=== PATIENT | male | born 1985 | race American Indian/Alaskan Native ===

== ENCOUNTER 2022-02-25 02:10 | Emergency (ER) | payer MEDICARE ==
[2022-02-25 03:41] VITALS: BP 157/89
[2022-02-25] MEDS ORDERED: IPRATROPIUM/ALBUTEROL SULFATE 3 ML AMPUL.NEB IH ONE (10:51)
--- NOTE | 2022-02-25 11:46 | XRay Report ---
CHEST 2 VIEWS INDICATION: dyspnea. COMPARISON: None. FINDINGS: Support devices: None. Heart: Moderate cardiomegaly. Lungs/Pleura: No acute air space or interstitial disease. No significant pleural effusion. IMPRESSION: No acute findings. Signer Name: Sherwin Hensley MD Signed: 02/25/2022 11:41 AM Workstation Name: [id number]
[2022-02-25] MEDS ORDERED: IPRATROPIUM 0.02% NEBU 2.5 ML IH ONE (11:48)
--- NOTE | 2022-02-25 12:54 | Emergency Department Report ---
ED Shortness of Breath HPI - General Chief Complaint: Dyspnea/Respdistress Stated Complaint: GIDEON Source: patient Mode of arrival: Ambulatory Limitations: No Limitations - History of Present Illness Initial Comments: Patient is a 36-year-old male with a history of asthma and chronic bronchitis who presents to the ED with complaint of acute onset persistent nasal and sinus congestion, persistent dry cough and wheezing and shortness of breath for the last 4 days, worse in the last 12 hours. Patient states that he does not have any bronchodilators since he usually does not get asthma attacks frequently. Patient denies fever, chills, nausea and vomiting, chest pain and sore throat, abdominal pain, neck pain, headache, lightheadedness, dizziness or syncope. MD Complaint: shortness of breath, cough, "asthma attack" -: Sudden, days(s) (4) Severity: moderate Pain Scale: 6 Quality: dull Consistency: intermittent Improves With: nothing Worsens With: nothing Known History Of: asthma Context: recent URI, allergen exposure Associated Symptoms: denies other symptoms, cough Treatments Prior to Arrival: none - Related Data Home Oxygen Therapy: No Previous Rx's Medication Instructions Recorded Last Taken Type Albuterol Sulfate [Proventil Hfa] 1 - 2 puff IH Q4H PRN #1 inh 02/25/22 Unknown Rx Benzonatate [Tessalon Perles] 100 mg PO Q8HR #30 cap 02/25/22 Unknown Rx Cetirizine HCl [Zyrtec 10mg tab] 10 mg PO DAILY #30 tab 02/25/22 Unknown Rx methylPREDNISolone [Medrol 4MG 4 mg PO DAILY #21 tab 02/25/22 Unknown Rx DOSEPAK (21 tabs)] Allergies Allergy/AdvReac Type Severity Reaction Status Date / Time No Known Allergies Allergy Verified 02/25/22 12:04 ED Review of Systems ROS: Stated complaint: GIDEON Other details as noted in HPI Constitutional: denies: chills, fever, malaise, weakness Eyes: denies: eye pain, eye discharge, vision change ENT: congestion. denies: ear pain, throat pain Respiratory: cough, shortness of breath, wheezing Cardiovascular: denies: chest pain, palpitations Endocrine: no symptoms reported Gastrointestinal: denies: abdominal pain, nausea, diarrhea Genitourinary: denies: urgency, dysuria Musculoskeletal: denies: back pain, joint swelling, arthralgia Skin: denies: rash, lesions Neurological: denies: headache, weakness, paresthesias Psychiatric: denies: anxiety, depression Hematological/Lymphatic: denies: easy bleeding, easy bruising ED Past Medical Hx - Past Medical History Previous Medical History?: Yes Hx Asthma: Yes Additional medical history: Chronic bronchitis - Medications Home Medications: Home Medications Medication Instructions Recorded Confirmed Last Taken Type Albuterol Sulfate [Proventil Hfa] 1 - 2 puff IH Q4H PRN #1 inh 02/25/22 Unknown Rx Benzonatate [Tessalon Perles] 100 mg PO Q8HR #30 cap 02/25/22 Unknown Rx Cetirizine HCl [Zyrtec 10mg tab] 10 mg PO DAILY #30 tab 02/25/22 Unknown Rx methylPREDNISolone [Medrol 4MG 4 mg PO DAILY #21 tab 02/25/22 Unknown Rx DOSEPAK (21 tabs)] ED Physical Exam - General Limitations: No Limitations General appearance: alert, in no apparent distress - Head Head exam: Present: atraumatic, normocephalic, normal inspection - Eye Eye exam: Present: normal appearance, PERRL, EOMI Pupils: Present: normal accommodation - ENT ENT exam: Present: normal exam, normal orophraynx, mucous membranes moist, TM's normal bilaterally, normal external ear exam - Neck Neck exam: Present: normal inspection, full ROM. Absent: tenderness - Respiratory Respiratory exam: Present: wheezes (mildly diffuse coarse wheezes). Absent: normal lung sounds bilaterally, respiratory distress, rales, rhonchi, chest wall tenderness, accessory muscle use - Cardiovascular Cardiovascular Exam: Present: regular rate, normal rhythm, normal heart sounds. Absent: systolic murmur, diastolic murmur, rubs, gallop - GI/Abdominal GI/Abdominal exam: Present: soft, normal bowel sounds. Absent: tenderness, guarding, rebound, hyperactive bowel sounds, hypoactive bowel sounds - Extremities Exam Extremities exam: Present: normal inspection, full ROM, normal capillary refill. Absent: tenderness - Back Exam Back exam: Present: normal inspection, full ROM. Absent: tenderness, CVA tenderness (R), CVA tenderness (L), muscle spasm, paraspinal tenderness, vertebral tenderness, rash noted - Neurological Exam Neurological exam: Present: alert, oriented X3, CN II-XII intact, normal gait, reflexes normal - Psychiatric Psychiatric exam: Present: normal affect, normal mood - Skin Skin exam: Present: warm, dry, intact, normal color. Absent: rash ED Course Vital Signs 02/25/22 02/25/22 03:38 11:50 Temperature 98.6 F Pulse Rate 87 Pulse Rate [ 86 Bilateral Throughout] Respiratory 16 Rate Respiratory 18 Rate [Bilateral Throughout] Blood Pressure 157/89 [Right] O2 Sat by Pulse 97 Oximetry ED Medical Decision Making - Radiology Data Radiology results: report reviewed, image reviewed [facility] [address] [place] [address] XRay Report Signed Patient: LADARIUS CH MR#: [id number] 75 : 1985 Acct:[id number] Age/Sex: 36 / M ADM Date: 02/25/22 Loc: ED Attending Dr: Ordering Physician: ROSY AMEZCUA Date of Service: 02/25/22 Procedure(s): XR chest routine 2V Accession Number(s): [id number] cc: ROSY AMEZCUA Fluoro Time In Minutes: CHEST 2 VIEWS INDICATION: dyspnea. COMPARISON: None. FINDINGS: Support devices: None. Heart: Moderate cardiomegaly. Lungs/Pleura: No acute air space or interstitial disease. No significant pleural effusion. IMPRESSION: No acute findings. Signer Name: Sherwin Hensley MD Signed: 02/25/2022 11:41 AM Workstation Name: [id number] Transcribed By: ES Dictated By: Sherwin Hensley MD Electronically Authenticated By: Sherwin Hensley MD Signed Date/Time: 02/25/22 1141 DD/ 1140 TD/TT: - Medical Decision Making This is a 36-year-old male with a history of asthma and chronic bronchitis who presents to the ED with complaint of acute onset persistent nasal and sinus congestion, persistent dry cough and wheezing and shortness of breath for the last 4 days, worse in the last 12 hours. Patient states that he does not have any bronchodilators since he usually does not get asthma attacks frequently. In the ED, patient is alert and oriented x3 and is not in any distress. Patient received 2 rounds of DuoNeb treatment in the ED as well as Solu-Medrol 125 mg intramuscular injection. Chest x-ray showed no acute cardiopulmonary abnormalities or pneumonitis. On reevaluation, patient wheezing resolved, patient felt better, patient's oxygen saturation ranged from 98 to 100% on room air. Patient was discharged home on medications and advised to follow-up with his primary care physician in 3 to 5 days for reevaluation or return to the ED immediately if symptoms get worse - Differential Diagnosis Asthma; bronchitis; URI; rhinitis Critical care attestation.: If time is entered above; I have spent that time in minutes in the direct care of this critically ill patient, excluding procedure time. ED Disposition Clinical Impression: Shortness of breath Asthmatic bronchitis with acute exacerbation Qualifiers: Asthma severity: unspecified severity Asthma persistence: unspecified Qualified Code(s): J45.901 - Unspecified asthma with (acute) exacerbation Disposition: HOME / SELF CARE / HOMELESS Is pt being admited?: No Does the pt Need Aspirin: No Condition: Stable Instructions: Shortness of Breath, Adult, [id number], Cough, Adult, [id number], Asthma, Adult, [id number] Additional Instructions: Chest x-ray showed no acute cardiopulmonary abnormalities or pneumonitis. Therefore take medications as advised, drink plenty of fluids, follow-up with your primary care physician in 3 to 5 days for reevaluation. Return to the ED immediately if symptoms get worse Prescriptions: methylPREDNISolone [Medrol 4MG DOSEPAK (21 tabs)] 4 mg PO DAILY #21 tab Albuterol Sulfate [Proventil Hfa] 1 - 2 puff IH Q4H PRN #1 inh PRN Reason: Shortness Of Breath Benzonatate [Tessalon Perles] 100 mg PO Q8HR #30 cap Cetirizine HCl [Zyrtec 10mg tab] 10 mg PO DAILY #30 tab Referrals: PHYLLIS ENRIQUEZ MD [Primary Care Provider] - 3-5 Days Time of Disposition: 12:51 Print Language: VIETNAMESE
[2022-02-25] MEDS ORDERED: methylPREDNISolone Sod Succinate 125 MG/2 ML INJ IM ONE (13:30)
== END 2022-02-25 13:24 | disposition home or self-care (01) ==
LOC: ED 02:10
DX: J45.901 Unspecified asthma with (acute) exacerbation (principal); J44.1 Chronic obstructive pulmonary disease with (acute) exacerbation
CPT/HCPCS: 71046; 94640; 96372; 99283; J2930; 94644